=== PATIENT | male | born 1975 | race Hispanic/Latino ===

== ENCOUNTER 2018-10-05 04:40 | Emergency (ER) | payer OTHER ==
[~2018-10-05] VITALS: Ht 175.3 cm; Wt 81.6 kg
--- OUTSIDE RECORDS SUMMARY | 2018-10-05 04:42 | XMS REPORT | Clinical Summary ---
Author Author [facility] Address Unknown Phone Unavailable Care Team Providers Care Social Welfare Research Worker Name Role Phone Meagan Avila DO PCP Allergies No Known Allergies Medications End Date Status Medication Sig Dispensed Refills Start Date Active EQUETRO 200 mg capsule, TK 1 C PO QHS 2 ER multiphase 12 hr 8 08/17/2019 Active meloxicam (MOBIC) 15 mg Take 1 tablet 30 tablet 0 tabletIndications: Neck (15 mg total) 8 pain, Muscle spasms of by mouth neck, Cervical daily. radiculopathy, Acute pain of right shoulder 08/17/2018 Discontinued meloxicam (MOBIC) 15 mg Take 1 tablet 30 tablet 0 tabletIndications: Neck (15 mg total) 8 pain, Muscle spasms of by mouth neck, Cervical daily. radiculopathy, Acute pain of right shoulder 08/10/2018 methylPREDNISolone Take 1 tablet 21 tablet 0 (MEDROL DOSEPAK) 4 mg (4 mg total) 8 tablet by mouth See Admin Instructions for 5 days. Use as directed by package instructions 09/04/2018 cyclobenzaprine Take 1 tablet 30 tablet 0 (FLEXERIL) 10 mg tablet (10 mg total) 8 by mouth nightly as needed for muscle spasms for up to 30 days. 09/04/2018 traMADol (ULTRAM) 50 mg Take 1 tablet 30 tablet 2 tablet (50 mg total) 8 by mouth every 6 (six) hours as needed for moderate pain for up to 30 days. Active Problems Problem Noted Date Physical exam, annual 02/18/2017 Rash 02/18/2017 Fatigue 02/18/2017 Encounters Care Team Description Date Type Specialty Jake Abbott MD Cervical radiculopathy (Primary Dx) 09/09/2018 Office Visit Orthopedic Surgery Miguel Pennington MD Neck pain; Muscle spasms of neck; Cervical radiculopathy; Acute pain of right shoulder 08/17/2018 Refill Orthopedic Surgery Jake Abbott MD Cervical radiculopathy (Primary Dx) 08/10/2018 Office Visit Orthopedic Surgery Jake Abbott MD Cervical radiculopathy (Primary Dx) 08/05/2018 Office Visit Orthopedic Surgery Miguel Pennington MD Neck pain (Primary Dx); Muscle spasms of neck; Cervical radiculopathy; Acute pain of right shoulder 07/26/2018 Office Visit Orthopedic Surgery Miguel Pennington MD 07/26/2018 Hospital Radiology Encounter Miguel Pennington MD 07/25/2018 Telephone Orthopedic Surgery Miguel Pennington MD 07/21/2018 Hospital Radiology Encounter Miguel Pennington MD Impingement syndrome of right shoulder (Primary Dx); Rotator cuff tendinitis, right 07/21/2018 Office Visit Orthopedic Surgery after 10/04/2017 Family History Medical History Relation Name Comments Cancer Father Relation Name Status Comments Father Mother Alive Social History Date Tobacco Use Types Packs/Day Years Used Current Every Day Smoker Cigarettes Smokeless Tobacco: Current User Alcohol Use Drinks/Week oz/Week Comments Yes Sex Assigned at Date Recorded Not on file Industry Job Start Date Occupation Not on file Not on file Not on file Travel End Travel History Travel Start No recent travel history available. 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 Body Mass Index 25.84 Plan of Treatment Health Maintenance Due Date Last Done Comments INFLUENZA VACCINE Completed 08/17/2018 Procedures Comments Procedure Name Priority Date/Time Associated Diagnosis MRI CERVICAL SPINE WO Routine 08/09/2018 Cervical radiculopathy CONTRAST 1:34 PM CDT XR CERVICAL SPINE Routine 07/26/2018 Neck pain COMPLETE 3:12 PM CDT MRI UPPER EXTREMITY Routine 07/26/2018 EXTERNAL STUDY 11:43 AM CDT XR UPPER EXTREMITY Routine 07/12/2018 EXTERNAL STUDY 3:06 PM CDT after 10/04/2017 Results * MRI Cervical Spine Wo Contrast (08/09/2018 1:34 PM CDT) Narrative Performed At [facility] EXAMINATION: MRI CERVICAL SPINE WO CONTRAST CLINICAL HISTORY: M54.12 Radiculopathycervical region, c radiculopathy COMPARISON:Cervical spine x-ray dated July 26, 2018 TECHNIQUE: Multiplanar multisequence noncontrast enhanced examination was performed of the cervical spine. FINDINGS: Vertebral body heights are maintained. The cervicomedullary junction is unremarkable. No cord signal abnormality identified. No focal marrow lesions. No masses are present in the visualized prevertebral soft tissues. Cervical alignment is preserved with normal lordosis. There is no significant spondylolisthesis. Axial images through the disc spaces demonstrate the following: C1-C2: There is narrowing of the atlantoaxial interval with spurring. There is no significant stenosis. C2-C3: No significant posterior disc disease, spinal canal or neural foraminal stenosis. C3-C4: Uncovertebral arthrosis and facet disease results in mild right foraminal narrowing. The canal left foramen are unremarkable. C4-C5: Uncovertebral arthrosis and facet disease results in mild right and minimal left foraminal narrowing. The canal is patent. C5-C6: There is disc desiccation with posterior spondylosis and a posterior central disc protrusion mildly narrowing the canal to 9 mm. The foramina are patent. C6-C7: There is posterior spondylosis with mild canal narrowing to 9 mm. The venous present without foraminal narrowing. C7-T1: No significant posterior disc disease, spinal canal or neural foraminal stenosis. No significant posterior disc disease, spinal canal or neural foraminal stenosis at other visualized levels. IMPRESSION: There is multilevel spondylosis with mild narrowing as detailed above. No acute osseous abnormality or severe stenosis appreciated. [id number] Procedure Note Interface, Radiology Results Incoming - 08/09/2018 4:04 PM CDT EXAMINATION: MRI CERVICAL SPINE WO CONTRAST CLINICAL HISTORY: M54.12 Radiculopathy cervical region, c radiculopathy COMPARISON: Cervical spine x-ray dated July 26, 2018 TECHNIQUE: Multiplanar multisequence noncontrast enhanced examination was performed of the cervical spine. FINDINGS: Vertebral body heights are maintained. The cervicomedullary junction is unremarkable. No cord signal abnormality identified. No focal marrow lesions. No masses are present in the visualized prevertebral soft tissues. Cervical alignment is preserved with normal lordosis. There is no significant spondylolisthesis. Axial images through the disc spaces demonstrate the following: C1-C2: There is narrowing of the atlantoaxial interval with spurring. There is no significant stenosis. C2-C3: No significant posterior disc disease, spinal canal or neural foraminal stenosis. C3-C4: Uncovertebral arthrosis and facet disease results in mild right foraminal narrowing. The canal left foramen are unremarkable. C4-C5: Uncovertebral arthrosis and facet disease results in mild right and minimal left foraminal narrowing. The canal is patent. C5-C6: There is disc desiccation with posterior spondylosis and a posterior central disc protrusion mildly narrowing the canal to 9 mm. The foramina are patent. C6-C7: There is posterior spondylosis with mild canal narrowing to 9 mm. The venous present without foraminal narrowing. C7-T1: No significant posterior disc disease, spinal canal or neural foraminal stenosis. No significant posterior disc disease, spinal canal or neural foraminal stenosis at other visualized levels. IMPRESSION: There is multilevel spondylosis with mild narrowing as detailed above. No acute osseous abnormality or severe stenosis appreciated. [id number] Performing Organization Address City/[facility]/Zipcode Phone Number [facility] [address] [place] [address] * XR Cervical Spine Complete (07/26/2018 3:12 PM CDT) Narrative Performed At [facility] AP, lateral and oblique x-rays of the cervical spine shows straightening of the normal cervical curve.The x-rays have nobony abnormalities noted. Performing Organization Address City/[facility]/Zipcode Phone Number [facility] [address] [place] [address] * MRI Upper Extremity External Study (07/26/2018 11:43 AM CDT) Narrative Performed At This exam was not acquired at a [facility] facility and has not been [facility] interpreted by a [facility] Provider.The exam was imported into our imaging system for comparisons purposes. Performing Organization Address City/State/Zipcode Phone Number [facility] [address] [place] [address] * XR Upper Extremity External Study (07/12/2018 3:06 PM CDT) Narrative Performed At This exam was not acquired at a [facility] facility and has not been [facility] interpreted by a [facility] Provider.The exam was imported into our imaging system for comparisons purposes. Performing Organization Address [facility] Phone Number [facility] [address] [place] [address] after 10/04/2017 Insurance Payer Benefit Subscriber ID Type Phone Address Plan / Group [facility] xxxxxxxxx HMO/PPO THCARE CHOICE/CHO ICE + ([place]) [place] [address] Advance Directives Patient has advance care planning documents on file. For more information, david uribe contact: Yassine Justin [address] [place] [address]
--- OUTSIDE RECORDS SUMMARY | 2018-10-05 04:42 | XMS REPORT ---
Author [facility] Address Unknown Phone Unavailable Care Team Providers Care Information Systems Technician Name Role Phone Unavailable Unavailable Payers Payer Name Policy Type Policy Number Effective Date Expiration Date Problems This patient has no known problems. Allergies, Adverse Reactions, Alerts Allergy Name Allergy Type Status Severity Reaction(s) Onset Date Inactive Date Treating Clinician Comments No Known Allergies DA Active U 2018-09-05 00:00:00 No Known Intolerances DA Active U 2009-12-01 00:00:00 Medications This patient has no known medications.
[2018-10-05 05:13] LABS: BASOPHILS # (AUTO) 0.1 (0.0-0.1); BASOPHILS % 0.7 % (0.0-1.0); EOSINOPHILS # (AUTO) 0.2 (0.0-0.4); EOSINOPHILS % 1.9 % (0.0-6.0); HEMATOCRIT 45.8 % (38.2-49.6); HEMOGLOBIN 16.2 g/dL (14.0-18.0); LYMPHOCYTES # (AUTO) 2.5 (1.0-3.2); LYMPHOCYTES % 23.2 % (18.0-39.1); MEAN CORPUSCULAR HEMOGLOBIN 33.8 pg (28-32); MEAN CORPUSCULAR HGB CONC 35.4 g/dL (31-35); MEAN CORPUSCULAR VOLUME 95.4 fL (81-99); MONOCYTES # (AUTO) 0.6 (0.2-0.8); MONOCYTES % 5.9 % (4.4-11.3); NEUTROPHILS # (AUTO) 7.3 (2.1-6.9); NEUTROPHILS % 67.8 % (38.7-80.0); PLATELET COUNT 339 x10e3/uL (140-360); RED CELL DISTRIBUTION WIDTH 12.8 % (11.7-14.4)
[2018-10-05 05:31] LABS: ALANINE AMINOTRANSFERASE 23 IU/L (0-55); ALBUMIN 4.3 g/dL (3.5-5.0); ALBUMIN/GLOBULIN RATIO 1.3 (0.8-2.0); ALKALINE PHOSPHATASE 86 IU/L (40-150); ANION GAP 16.6 mmol/L (8-16); BLOOD UREA NITROGEN 6 mg/dL (7-26); BUN/CREATININE RATIO 7 (6-25); CALCIUM 9.2 mg/dL (8.4-10.2); CARBON DIOXIDE 23 mmol/L (22-29); CHLORIDE 105 mmol/L (98-107); CREATINE KINASE 75 IU/L (30-200); CREATININE, SERUM 0.84 mg/dL (0.72-1.25); EST GLOMERULAR FILTRATION RATE > 60 ML/MIN (60-); GLUCOSE 104 mg/dL (74-118); POTASSIUM 3.6 mmol/L (3.5-5.1); SODIUM 141 mmol/L (136-145)
[2018-10-05 05:36] LABS: ACETAMINOPHEN < 3 ug/mL (10-30); SALICYLATE < 5.0 mg/dL (0-30)
[2018-10-05] MEDS ORDERED: MULTIVITAMINS- 12 INJECTION 10 ML, FOLIC ACID MDV 5 MG, THIAMINE HCL INJ 100 MG in SODI... IV ONE (06:15)
[2018-10-05 06:31] LABS: BILIRUBIN,URINE NEGATIVE (NEGATIVE); CLARITY,URINE CLEAR (CLEAR); COLOR,URINE YELLOW (YELLOW); KETONES,URINE NEGATIVE (NEGATIVE); LEUKOCYTE ESTERASE ,URINE NEGATIVE (NEGATIVE); NITRITE,URINE NEGATIVE (NEGATIVE); PROTEIN,URINE DIPSTICK NEGATIVE (NEGATIVE)
[2018-10-05 06:34] LABS: AMPHETAMINES SCREEN,URINE POSITIVE (NEGATIVE); BENZODIAZEPINES SCREEN,URINE NEGATIVE (NEGATIVE); PHENCYCLIDINE SCREEN,URINE NEGATIVE (NEGATIVE)
[2018-10-05 06:42] LABS: BACTERIA,URINE FEW /HPF; EPITHELIAL CELLS,URINE FEW /LPF; RBC,URINE 0-5 /HPF (0-5); WBC,URINE (MAN) 0-5 /HPF (0-5)
[2018-10-05 06:45] LABS: URINE UROBILINOGEN 0.2 mg/dL (0.2 - 1)
--- NOTE | 2018-10-05 06:45 | NUR ---
SPOKE TO CALLUM AT [facility]ISON CONTROL, ER AWARE
[2018-10-05] MEDS ORDERED: TYLENOL # 31 EA PO (06:59)
[2018-10-05] MEDS ORDERED: ADDERALL 20 MG20 MG PO (06:59)
[2018-10-05] MEDS ORDERED: CYCLOBENZAPRINE5 MG PO (06:59)
[2018-10-05] MEDS ORDERED: EQUETRO200 MG PO (07:01)
--- NOTE | 2018-10-05 07:22 | NUR ---
Patient placed in paper scrubs with sitter at bedside. All unused equipment out of room at this time. Will continue to closely monitor patient.
--- NOTE | 2018-10-05 08:17 | NUR ---
Banana bag upped to 250 ml's/hour as ordered by Dr. Cruz. Patient continues to rest with no distress. Will continue to monitor patient.
--- NOTE | 2018-10-05 08:50 | NUR ---
Food services notifed of diet order with plastic cultery.
--- NOTE | 2018-10-05 09:04 | NUR ---
Patient eating breakfast at this time. No distress noted. Will continue to monitor patient.
--- NOTE | 2018-10-05 10:52 | NUR ---
MAT team paged at this time.
--- NOTE | 2018-10-05 11:01 | NUR ---
Spoke to MAT team at this time. States ETA is approx 1 hour.
[2018-10-05] MEDS ORDERED: MIRTAZAPINE15 MG PO (13:23)
--- NOTE | 2018-10-05 14:17 | NUR ---
Spoke to [facility] at this time. ETA is 45 minutes to one hour.
[2018-10-05 15:49] VITALS: BP 136/97
== END 2018-10-05 15:53 ==
LOC: ER 04:40
DX: F33.3 Major depressive disorder, recurrent, severe with psychotic symptoms (principal); F10.120 Alcohol abuse with intoxication, uncomplicated; F17.210 Nicotine dependence, cigarettes, uncomplicated; Z91.14 Patient's other noncompliance with medication regimen
CPT/HCPCS: 36415; 80053; 80307; 80320; 80329 ×2; 81001; 82550; 82553; 84484; 85025; 93005; 99285; J3411; J7030